=== PATIENT | female | born 1945 | race Caucasian/White ===

== ENCOUNTER 2016-11-09 18:16 | Emergency (ER) | payer MEDICARE, OTHER ==
[2016-11-09] MEDS ORDERED: HYDROmorphone 1 MG/ML SYRINGE IM STA (18:29)
[2016-11-09] MEDS ORDERED: ONDANSETRON ODT 4 MG TABLET TL STA (18:29)
--- NOTE | 2016-11-09 18:32 | ED Physician Documentation ---
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 Pain is now severe, a deep pressure-like pain in her upper arm and bicep and shoulder.) Review of Systems Constitutional: denies: Fever, Chills Nose: reports: Reviewed and negative Cardiac: denies: Chest pain / pressure, Palpitations Respiratory: denies: Dyspnea, Cough PD PAST MEDICAL HISTORY - Present Medications Home Medications: Ambulatory Orders Medication Instructions Recorded Confirmed Glimepiride 1 mg PO DAILY 11/09/16 11/09/16 Lisinopril 40 mg PO DAILY 11/09/16 11/09/16 Meloxicam [Mobic] 7.5 mg PO BIDWM PRN #15 tablet 11/09/16 Ondansetron HCl [Zofran] 4 mg PO Q6H PRN #10 tablet 11/09/16 Oxycodone HCl/Acetaminophen 1 - 2 tab PO Q4H PRN #15 tablet 11/09/16 [Percocet 5-325 mg Tablet] Simvastatin 20 mg PO DAILY 11/09/16 11/09/16 amLODIPine [Norvasc] 5 mg PO DAILY 11/09/16 11/09/16 metFORMIN [Glucophage] 500 mg PO BID 11/09/16 11/09/16 - Allergies Allergies/Adverse Reactions: Allergies Allergy/AdvReac Type Severity Reaction Status Date / Time codeine AdvReac Unknown Verified 11/09/16 18:23 PD ED PE NORMAL - Vitals Vital signs reviewed: Yes - General General: Alert and oriented X 3, Other (Clearly in pain) - Neck Neck: Other (Mild left-sided neck tenderness) - Cardiac Cardiac: RRR, No murmur - Respiratory Respiratory: No respiratory distress, Clear bilaterally - Abdomen Abdomen: Non tender - Derm Derm: Other (No shingles rash) - Extremities Extremities: Other (The shoulder itself is minimally tender posteriorly and across the top, she is able to bring it up to about 90 without obvious pain. She has equal radial pulses on both sides. She has slightly diminished rehab director occupational therapist strength on the left as well as extension at the wrist and diminished but not absent sensation over the deltoid but not in the forearm.) - Neuro Neuro: Alert and oriented X 3, Normal speech - Psych Psych: Normal mood, Normal affect Results - Vitals Vitals: Vital Signs - 24 hr 11/09/16 11/09/16 18:21 20:12 Temperature 36.2 C L 36.0 C L Heart Rate 89 64 Respiratory 20 18 Rate Blood Pressure 215/97 H 145/71 H O2 Saturation 98 97 Oxygen O2 Source Room air - EKG (time done) 1837 Rate: Rate (enter#) (81) Rhythm: NSR [place]: Normal QRS: LVH Ischemia: Normal ST segments Computer interpretation: Agree with computer - Labs Labs: Laboratory Tests 11/09/16 11/09/16 11/09/16 19:25 19:38 19:38 WBC 8.3 RBC 5.09 Hgb 15.2 Hct 43.0 MCV 84.6 MCH 29.8 MCHC 35.2 RDW 12.8 Plt Count 383 MPV 6.7 L Neut # 4.7 Lymph # 2.7 [place] # 0.7 Eos # 0.2 Baso # 0.1 Absolute Nucleated RBC 0.00 Nucleated RBCs 0.0 Sodium 138 Potassium 3.7 Chloride 104 Carbon Dioxide 26 Anion Gap 8.0 BUN 15 Creatinine 0.8 Estimated GFR (MDRD) 71 L Glucose 172 H Lactic Acid 1.4 Calcium 9.7 Total Bilirubin 0.5 AST 16 ALT 17 Alkaline Phosphatase 103 Total Protein 7.2 Albumin 4.0 Globulin 3.2 Albumin/Globulin Ratio 1.3 Lipase 29 - Rads (name of study) L shoulder Radiology: EMP read contemporaneously (NAD) C spine CT Radiology: EMP read contemporaneously (Severe neuroforaminal narrowing on the left at C5-6) PD MEDICAL DECISION MAKING - ED course ED course: 71-year-old woman presents with left-sided pain most consistent with cervical radiculopathy. Evidence of this is shown on CT, no other relevant findings. Narcotics were only minimally helpful but she did have a lot of relief with Toradol. Departure - Departure Disposition: 01 Home, Self Care Clinical Impression: Cervical radiculopathy Condition: Good Record reviewed to determine appropriate education?: Yes Instructions: ED Cervical Radiculopathy Prescriptions: Meloxicam [Mobic] 7.5 mg PO BIDWM PRN #15 tablet PRN Reason: Pain Oxycodone HCl/Acetaminophen [Percocet 5-325 mg Tablet] 1 - 2 tab PO Q4H PRN #15 tablet PRN Reason: Pain Ondansetron HCl [Zofran] 4 mg PO Q6H PRN #10 tablet PRN Reason: Nausea / Vomiting Comments: Call your primary doctor tomorrow to discuss physical therapy and /or MRI if not better. Do not drink or drive while taking narcotic pain medication. Note that many narcotic pain relievers also contain Tylenol/acetaminophen. Please ensure that your total dose of acetaminophen from all sources does not exceed 3 g (3000 mg) per day. You may get constipated while on this medication. Take a stool softener such as Colace twice a day while you are on it. Also add an [id number] laxative such as senna or MiraLAX on any day that you do not have a bowel movement. If you received a narcotic pain medication or sedative while in the emergency department, do not drive for the next 24 hours. Your blood pressure was elevated today on check into the emergency department. This does not mean that you have hypertension, it is a common phenomenon to come to the emergency department and have elevated blood pressure. I recommend that she see her primary care physician within the week to have it rechecked when you are feeling better.
[2016-11-09] MEDS ORDERED: ONDANSETRON ODT 4 MG TABLET ONE (18:46)
[2016-11-09] MEDS ORDERED: HYDROmorphone 1 MG/ML SYRINGE ONE ×2 (18:46→19:46)
--- NOTE | 2016-11-09 19:22 | XRAY Preliminary Report ---
Exam: XR Shoulder 3 View LT IMPRESSION: Chronic findings. No acute disease. [facility] SITE ID: [id number]
--- NOTE | 2016-11-09 19:24 | XRAY Report ---
EXAM: LEFT SHOULDER RADIOGRAPHY EXAM DATE: 11/09/2016 07:11 PM. CLINICAL HISTORY: Shoulder pain, suspect radicular. COMPARISON: None. TECHNIQUE: 3 views. FINDINGS: Bones: Old resection of clavicle head. No definite fracture or other bone lesion. Joints: Mild degenerative changes, glenohumeral joint space narrowing. Anatomic alignment. Soft tissues: Unremarkable. Clear visualized lung. Cardiomegaly incidentally noted. IMPRESSION: Chronic findings. No acute disease. [facility] Referring Provider Line: [phone] SITE ID: [id number]
[2016-11-09] MEDS ORDERED: HYDROmorphone 1 MG/ML SYRINGE IVP STA (19:25)
[2016-11-09] MEDS ORDERED: KETOROLAC 60 MG/2 ML VIAL IVP STA (19:25)
--- NOTE | 2016-11-09 19:32 | CT Preliminary Report ---
Exam: CT Cervical Spine W/O IMPRESSION: 1. Straightening of the normal cervical lordosis likely secondary to degenerative change. 2. No acute fracture or dislocation of the cervical spine. 3. Multilevel degenerative changes noted throughout the cervical spine as described above. Severe lef t neuroforaminal stenosis at C5-C6. [facility] SITE ID: [id number]
--- NOTE | 2016-11-09 19:35 | CT Report ---
EXAM: CT CERVICAL SPINE WITHOUT CONTRAST DATE: 11/09/2016 07:20 PM HISTORY: Shoulder pain, suspect radicular. COMPARISONS: None. TECHNIQUE: Thin-section axial images were acquired of the cervical spine without contrast. Post-proce ssing: Coronal and sagittal reformats. Other: None. In accordance with CT protocol optimization, one or more of the following dose reduction techniques w ere utilized for this exam: automated exposure control, adjustment of mA and/or KV based on patient s ize, or use of iterative reconstructive technique. FINDINGS: Alignment: Straightening of the normal cervical lordosis. No scoliosis. No spondylolisthesis. Bones: Mild osteopenia. No acute fracture lines are seen. No focal abnormal osseous lesions. Interspace Levels/Facets: C1-C2: Mild degenerative narrowing at the C1-C2 interspace. C2-C3: Unremarkable. C3-C4: Mild disk height loss. No significant neuroforaminal stenosis. C4-C5: Moderate to severe disk height loss and disk osteophytes. Moderate to severe bilateral neural foraminal stenosis secondary to facet and uncovertebral hypertrophy. C5-C6: Moderate to severe disk height loss with disk osteophytes. Severe left and moderate to severe right neuroforaminal stenosis secondary to facet and uncovertebral hypertrophy. C6-C7: Mild disk height loss. No significant neuroforaminal stenosis. C7-T1: Unremarkable. Musculature: Normal. No fatty atrophy. Other: The paravertebral and prevertebral soft tissues are normal. The lung apices are clear. IMPRESSION: 1. Straightening of the normal cervical lordosis likely secondary to degenerative change. 2. No acute fracture or dislocation of the cervical spine. 3. Multilevel degenerative changes noted throughout the cervical spine as described above. Severe lef t neuroforaminal stenosis at C5-C6. [facility] Referring Provider Line: [phone] SITE ID: [id number]
[2016-11-09] MEDS ORDERED: KETOROLAC 30 MG/ML VIAL ONE (19:46)
[2016-11-09 19:48] LABS: BASOPHILS # (AUTO) 0.1 10^3/uL (0.0-0.1); BASOPHILS % (AUTO) 1.2 %; EOSINOPHILS # (AUTO) 0.2 10^3/uL (0.0-0.7); EOSINOPHILS % (AUTO) 2.2 %; HGB - HEMOGLOBIN 15.2 g/dL (12.0-16.0); LYMPHOCYTES # (AUTO) 2.7 10^3/uL (1.5-3.5); MEAN CORPUSCULAR HEMOGLOBIN 29.8 pg (27.0-31.0); MEAN CORPUSCULAR HGB CONC 35.2 g/dL (32.0-36.0); MEAN CORPUSCULAR VOLUME 84.6 fL (81.0-99.0); MEAN PLATELET VOLUME 6.7 fL (7.9-10.8); MONOCYTES # (AUTO) 0.7 10^3/uL (0.0-1.0); MONOCYTES % (AUTO) 8.1 %; NEUTROPHILS # (AUTO) 4.7 10^3/uL (1.5-6.6); NEUTROPHILS % (AUTO) 56.5 %; RED BLOOD COUNT 5.09 10^6/uL (4.20-5.40); RED CELL DISTRIBUTION WIDTH 12.8 % (12.0-15.0); UNCORRECTED WHITE BLOOD COUNT 8.3 x10^3/uL; WHITE BLOOD COUNT 8.3 x10^3/uL (4.8-10.8)
[2016-11-09] MEDS ORDERED: ONDANSETRON 4 MG/2 ML VIAL IVP STA (19:50)
[2016-11-09] MEDS ORDERED: ONDANSETRON 4 MG/2 ML VIAL ONE (19:54)
[2016-11-09 19:59] LABS: ALBUMIN/GLOBULIN RATIO 1.3 (1.0-2.2); BILIRUBIN,TOTAL 0.5 mg/dL (0.2-1.0); CALCIUM 9.7 mg/dL (8.5-10.3); CREATININE 0.8 mg/dL (0.4-1.0); POTASSIUM 3.7 mmol/L (3.5-5.0); TOTAL PROTEIN 7.2 g/dL (6.7-8.2)
[2016-11-09] MEDS ORDERED: oxyCODONE/ACET 5/325 Prepack 4 PO STA (20:19)
[2016-11-09] MEDS ORDERED: oxyCODONE/ACET 5/325 Prepack 4 PO ONE (20:25)
[2016-11-09] MEDS ORDERED: PROMETHAZINE INJ 25 MG in SODIUM CHLORIDE 0.9% 50 ML IV STA (20:34)
[2016-11-09] MEDS ORDERED: PROMETHAZINE 25 MG/1 ML VIAL ONE (20:39)
[2016-11-09 21:31] VITALS: BP 134/77
== END 2016-11-09 21:29 | disposition home or self-care (01) ==
LOC: ED 18:16
DX: M54.12 Radiculopathy, cervical region (principal); E11.9 Type 2 diabetes mellitus without complications; Z79.84 Long term (current) use of oral hypoglycemic drugs
CPT/HCPCS: 36415; 72125; 73030; 80053; 83605; 83690; 85025; 93005; 96365; 96372; 96375; 99283; 99284; J1170; J7040; Q0162

== ENCOUNTER 2016-11-13 06:03 | Emergency (ER) | payer MEDICARE, OTHER ==
[2016-11-13] MEDS ORDERED: KETOROLAC 60 MG/2 ML VIAL IVP STA (06:29)
[2016-11-13] MEDS ORDERED: DEXAMETHASONE 10 MG/ML VIAL IVP STA (06:29)
[2016-11-13] MEDS ORDERED: SODIUM CHLORIDE 0.9% 1,000 ML IV ONE ×3 (06:29→08:11)
--- NOTE | 2016-11-13 06:34 | ED Physician Documentation ---
PD HPI BACK PAIN - Stated complaint Stated Complaint: BACK PX - Chief complaint Chief Complaint: Back Pain - History obtained from History obtained from: Patient, Family - History of Present Illness Timing - onset: Enter time (2199), Last night Timing - duration: Hours Timing - details: Abrupt onset, Still present, Waxing and waning Location: Upper, Mid Quality: Pain, Spasm, Sharp Associated symptoms: No: Fever, Weakness, Numbness, Incontinent of urine, Unable to urinate, Hematuria, Incontinent of stool Improves with: Rest, Position, Meds Worsened by: Movement Similar symptoms before: Has not had sx before Recently seen: Emergency Dept (Seen in the ED with what appeared to be cervical radiculopathy) - Additional information Additional information: 71-year-old female has recently developed pain in her left shoulder and this has persisted this was thought likely to be due to cervical radiculopathy. She is now developed acute spasm of her back all the way across the back at the lower end of the ribs up to about the scapula. She has spasm and cycles that is severe. She has been urinating a lot. She has diabetes.She denies any cough Review of Systems Constitutional: reports: Fatigue. denies: Fever, Chills, Myalgias Eyes: denies: Decreased vision Ears: denies: Ear pain Nose: denies: Rhinorrhea / runny nose, Congestion Throat: denies: Sore throat Cardiac: reports: Chest pain / pressure. denies: Palpitations, Pedal edema, Calf pain Respiratory: denies: Dyspnea, Cough, Wheezing GI: denies: Abdominal Pain, Nausea, Vomiting : reports: Frequency. denies: Dysuria Skin: denies: Rash, Lesions Musculoskeletal: reports: Back pain, Extremity pain. denies: Neck pain Neurologic: denies: Generalized weakness, Focal weakness, Numbness PD PAST MEDICAL HISTORY - Past Medical History Cardiovascular: Hypertension, High cholesterol Endocrine/Autoimmune: Type 2 diabetes - Past Surgical History Past Surgical History: Yes /[employer]LETE: Hysterectomy - Present Medications Home Medications: Ambulatory Orders Medication Instructions Recorded Confirmed Glimepiride 1 mg PO DAILY 11/09/16 11/09/16 Lisinopril 40 mg PO DAILY 11/09/16 11/09/16 Meloxicam [Mobic] 7.5 mg PO BIDWM PRN #15 tablet 11/09/16 Ondansetron HCl [Zofran] 4 mg PO Q6H PRN #10 tablet 11/09/16 Oxycodone HCl/Acetaminophen 1 - 2 tab PO Q4H PRN #15 tablet 11/09/16 [Percocet 5-325 mg Tablet] Simvastatin 20 mg PO DAILY 11/09/16 11/09/16 amLODIPine [Norvasc] 5 mg PO DAILY 11/09/16 11/09/16 metFORMIN [Glucophage] 500 mg PO BID 11/09/16 11/09/16 - Allergies Allergies/Adverse Reactions: Allergies Allergy/AdvReac Type Severity Reaction Status Date / Time codeine AdvReac Unknown Verified 11/09/16 18:23 - Social History Does the pt smoke?: No Smoking Status: Never smoker Does the pt drink ETOH?: No Does the pt have substance abuse?: No - Immunizations Immunizations are current?: Yes - POLST Patient has POLST: No PD ED PE NORMAL - Vitals Vital signs reviewed: Yes (Hypertensive) - General General: Alert and oriented X 3, Well developed/nourished, Other (The patient appears to be in severe distress periodically with sharp severe spasms she arches her back and yells in pain.) - HEENT HEENT: Atraumatic, PERRL - Neck Neck: Supple, no meningeal sign - Cardiac Cardiac: No murmur, Other (Tachycardic) - Respiratory Respiratory: No respiratory distress, Clear bilaterally - Abdomen Abdomen: Soft, Non tender - Back Back: No CVA TTP, No spinal TTP, Other (There is some mild point tenderness to the back and the paraspinous muscles from about the end of the scapula to the end of the ribs.) - Derm Derm: Normal color, Warm and dry, No rash - Extremities Extremities: No deformity, No edema - Neuro Neuro: Alert and oriented X 3, game design instructor 2-12 intact, No motor deficit, No sensory deficit, Normal speech - Psych Psych: Normal mood, Normal affect Results - Vitals Vitals: Vital Signs - 24 hr 11/13/16 06:17 Temperature 36.6 C Heart Rate 100 Respiratory 20 Rate Blood Pressure 149/90 H O2 Saturation 100 Oxygen O2 Source Room air - Labs Labs: Laboratory Tests 11/13/16 11/13/16 11/13/16 06:20 06:44 06:44 WBC 7.6 RBC 4.90 Hgb 14.6 Hct 41.3 MCV 84.3 MCH 29.8 MCHC 35.3 RDW 12.6 Plt Count 352 MPV 6.5 L Neut # 4.9 Lymph # 1.9 [place] # 0.5 Eos # 0.1 Baso # 0.1 Absolute Nucleated RBC 0.00 Nucleated RBCs 0.0 Sodium 138 Potassium 3.6 Chloride 102 Carbon Dioxide 25 Anion Gap 11.0 BUN 15 Creatinine 0.9 Estimated GFR (MDRD) 62 L Glucose 173 H Calcium 9.8 Total Bilirubin 0.9 AST 15 ALT 17 Alkaline Phosphatase 89 Troponin I Total Protein 6.7 Albumin 3.8 Globulin 2.9 Albumin/Globulin Ratio 1.3 Lipase 23 Urine Color YELLOW Urine Clarity CLEAR Urine pH 7.5 Ur Specific [place] 1.010 Urine Protein NEGATIVE Urine Glucose (UA) NEGATIVE Urine Ketones NEGATIVE Urine Occult Blood NEGATIVE Urine Nitrite NEGATIVE Urine Bilirubin NEGATIVE Urine Urobilinogen 0.2 (NORMAL) Ur Leukocyte Esterase SMALL H Urine RBC 0-5 Urine WBC 4-5 Ur Squamous Epith Cells MOD Squamous H Urine Bacteria Rare Ur Microscopic Review INDICATED Urine Culture Comments NOT INDICATED 11/13/16 06:44 WBC RBC Hgb Hct MCV MCH MCHC RDW Plt Count MPV Neut # Lymph # [place] # Eos # Baso # Absolute Nucleated RBC Nucleated RBCs Sodium Potassium Chloride Carbon Dioxide Anion Gap BUN Creatinine Estimated GFR (MDRD) Glucose Calcium Total Bilirubin AST ALT Alkaline Phosphatase Troponin I < 0.04 Total Protein Albumin Globulin Albumin/Globulin Ratio Lipase Urine Color Urine Clarity Urine pH Ur Specific [place] Urine Protein Urine Glucose (UA) Urine Ketones Urine Occult Blood Urine Nitrite Urine Bilirubin Urine Urobilinogen Ur Leukocyte Esterase Urine RBC Urine WBC Ur Squamous Epith Cells Urine Bacteria Ur Microscopic Review Urine Culture Comments Procedures - IVC sono (time) 0630 Bedside IVC sono: IVC measures (cm) (0.93), IVC collapsed c insp (cm) (complete) , Significant dehydration PD MEDICAL DECISION MAKING - ED course Complexity details: reviewed old records, reviewed results, re-evaluated patient , considered differential, d/w patient, d/w family ED course: 71-year-old female with acutePeriodic waves he is in acute distress on arrival to the emergency department. She is diabetic and found to be dehydrated on interrogation of the inferior vena cava. An IV is begun she is given intravenous Toradol and dexamethasone and saline. The patient has a history of cervical radiculopathy that has started last week. She has had severe left shoulder pain and numbness to the left arm and hand related to severe left C5-6 foraminal stenosis. She had to sleep in an easy chair for the past 3 days and this is likely the cause of her back spasms. She appears to respond to the medications and a repeat blood glucose is 161 improved from arrival. She is referred to neurosurgery and to a local PMD for follow up. She is visiting here from [place] [facility] Departure - Departure Disposition: 01 Home, Self Care Clinical Impression: Spasm of back muscles, Dehydration Instructions: ED Dehydration, ED Spasm Back No Trauma Follow-Up: [facility] [Provider Group] [facility] [Provider Group] Dg Bryant MD [Physician No Access] -
[2016-11-13] MEDS ORDERED: KETOROLAC 30 MG/ML VIAL ONE (06:38)
[2016-11-13] MEDS ORDERED: DEXAMETHASONE 10 MG/ML VIAL ONE (06:38)
[2016-11-13 06:55] LABS: BASOPHILS # (AUTO) 0.1 10^3/uL (0.0-0.1); BASOPHILS % (AUTO) 0.9 %; EOSINOPHILS # (AUTO) 0.1 10^3/uL (0.0-0.7); EOSINOPHILS % (AUTO) 1.8 %; HCT - HEMATOCRIT 41.3 % (37.0-47.0); HGB - HEMOGLOBIN 14.6 g/dL (12.0-16.0); LYMPHOCYTES # (AUTO) 1.9 10^3/uL (1.5-3.5); LYMPHOCYTES % (AUTO) 25.4 %; MEAN CORPUSCULAR HEMOGLOBIN 29.8 pg (27.0-31.0); MEAN CORPUSCULAR HGB CONC 35.3 g/dL (32.0-36.0); MEAN CORPUSCULAR VOLUME 84.3 fL (81.0-99.0); MEAN PLATELET VOLUME 6.5 fL (7.9-10.8); MONOCYTES # (AUTO) 0.5 10^3/uL (0.0-1.0); MONOCYTES % (AUTO) 7.1 %; NEUTROPHILS # (AUTO) 4.9 10^3/uL (1.5-6.6); NEUTROPHILS % (AUTO) 64.8 %; RED CELL DISTRIBUTION WIDTH 12.6 % (12.0-15.0); UNCORRECTED WHITE BLOOD COUNT 7.6 x10^3/uL; WHITE BLOOD COUNT 7.6 x10^3/uL (4.8-10.8)
[2016-11-13 06:56] LABS: BILIRUBIN,URINE NEGATIVE (NEGATIVE); PH,URINE 7.5 PH (5.0-7.5)
[2016-11-13 07:01] LABS: UA w/ MICROSCOPIC CHARGE YES
[2016-11-13] MEDS ORDERED: HYDROmorphone 1 MG/ML SYRINGE IVP STA (07:05)
[2016-11-13] MEDS ORDERED: ONDANSETRON 4 MG/2 ML VIAL IVP STA (07:05)
[2016-11-13 07:07] LABS: ALBUMIN/GLOBULIN RATIO 1.3 (1.0-2.2); BILIRUBIN,TOTAL 0.9 mg/dL (0.2-1.0); CALCIUM 9.8 mg/dL (8.5-10.3); CREATININE 0.9 mg/dL (0.4-1.0); POTASSIUM 3.6 mmol/L (3.5-5.0); TOTAL PROTEIN 6.7 g/dL (6.7-8.2)
[2016-11-13 07:14] LABS: UR CULTURE IF IND NOT INDICATED
[2016-11-13] MEDS ORDERED: ONDANSETRON 4 MG/2 ML VIAL ONE (07:20)
[2016-11-13] MEDS ORDERED: HYDROmorphone 1 MG/ML SYRINGE ONE (07:20)
[2016-11-13] MEDS ORDERED: SODIUM CHLORIDE FLUSH 0.9% 10 ML SYRINGE IVP ONE (07:21)
[2016-11-13 09:06] VITALS: BP 157/74
== END 2016-11-13 09:06 | disposition home or self-care (01) ==
LOC: ED 06:03
DX: E86.0 Dehydration (principal); M62.830 Muscle spasm of back; I10 Essential (primary) hypertension; E78.00 Pure hypercholesterolemia, unspecified; E11.9 Type 2 diabetes mellitus without complications; Z79.84 Long term (current) use of oral hypoglycemic drugs
CPT/HCPCS: 36415; 80053; 81001; 83690; 84484; 85025; 96361; 96374; 96375; 99283; 99284; J1170; 81003; 87086